=== PATIENT | female | born 1975 | race Two or more races ===

== ENCOUNTER 2025-01-22 09:55 | Outpatient (RCR) | payer MEDICAID, SELFPAY | END 2025-01-31 23:59 | disposition home or self-care (01) | LOC: CPTX 09:55 | PROVIDERS: PCP Orthopaedic Surgery; Referring Provider Orthopaedic Surgery; Visit Provider Orthopaedic Surgery | DX: Z53.8 Procedure and treatment not carried out for other reasons (principal) ==